=== PATIENT | male | born 1980 ===

== ENCOUNTER 2025-02-21 08:54 | Emergency (ER) | payer OTHER ==
[~2025-02-21] VITALS: Ht 182.9 cm; Wt 93.4 kg
[2025-02-21] MEDS ORDERED: KETOROLAC TROMETHAMINE 30 MG VIAL IV ONE (09:45)
[2025-02-21] MEDS ORDERED: CEFTRIAXONE SODIUM 2,000 MG VIAL IV ONE (09:45)
[2025-02-21] MEDS ORDERED: CEFTRIAXONE SODIUM 2,000 MG VIAL ONE (09:58)
[2025-02-21] MEDS ORDERED: KETOROLAC TROMETHAMINE 30 MG VIAL ONE (09:58)
[2025-02-21 10:38] LABS: BASO % 0.5 % (0.1-1.2); EOS # 0.19 (0.04-0.54); EOS % 3.2 % (0.7-7.0); LYMPH # 1.86 (1.18-3.74); LYMPH % 30.8 % (19.3-53.1); MEAN PLATELET VOLUME 11.50 fl (9.4-12.4); MONO # 0.57 (0.24-0.82); MONO % 9.5 % (4.7-12.5); NEUT # 3.30 (1.56-6.13); NEUT % 54.7 % (34.0-71.1); RED CELL DISTRIBUTION WIDTH 13.6 % (11.6-14.4)
[2025-02-21 10:41] LABS: ERYTHROCYTE SEDIMENTATION RATE < 1 mm/hr (0-15)
[2025-02-21 11:42] LABS: ALT/SGPT 48 U/L (12-78); AST/SGOT 22 U/L (15-37); BILIRUBIN TOTAL 0.62 mg/dL (0.3-1.2); BUN CREA RATIO 14 (7.0-25.0); CREATININE SERUM 1.12 mg/dL (0.70-1.30); GFR 70.27; GLOBULINA 2.9 G/DL (2.4-3.5); GLUCOSE FASTING 96 mg/dL (65-100); OSMOLALITY SERUM 288 MOSM/KG (275-295)
== END 2025-02-21 13:27 | disposition home or self-care (01) ==
LOC: ER 08:54
PROVIDERS: General Practice
DX: M65.272 Calcific tendinitis, left ankle and foot (principal); M10.9 Gout, unspecified; E78.00 Pure hypercholesterolemia, unspecified